=== PATIENT | male | born 1955 | race Caucasian/White ===

== ENCOUNTER → 2021-07-05 | Outpatient (CLI) | payer SELFPAY ==
[~2021-07-05] MED LIST: OMNIPAQUE 350 MG/ML, 100ML BOTTLE ONE
[2021-07-05 16:58] LABS: CREATININE 1.33 mg/dL (0.7-1.3)
== END | disposition home or self-care (01) ==
LOC: RAD 16:01
PROVIDERS: ATTEND Nurse Practitioner Family
DX: K57.30 Diverticulosis of large intestine without perforation or abscess without bleeding (principal); R60.9 Edema, unspecified
CPT/HCPCS: 36415; 74177; 82565; Q9967